=== PATIENT | male | born 1985 | race Caucasian/White ===

== ENCOUNTER 2020-09-08 22:00 | Inpatient (IN) | payer MEDICAID, SELFPAY ==
[2020-09-08 22:07] VITALS: BP 127/87; PULSE 87; RESP 15; TEMP 37.1; O2SAT 100
[2020-09-08 22:10] VITALS: BMI 44.2
[2020-09-08 22:24] LABS: Glucose Point of Care 127 mg/dL (70-110)
[2020-09-09] MEDS: apixaban 5 mg Tablet PO ×3 (00:30→21:20)
--- NOTE | 2020-09-09 03:46 | PC.NURSE ---
DIRECT ADMIT 35/M PT IS A DIRECT ADMISSION FROM [facility] IN [place] , VOLUNTARY FOR [facility]-AH, PT HITS HIMSELF, THE DEMONS IN HIS BODY, FORCE HIM TO HURT HIMSELF AND TELLS HIM TO HURT OTHER PEOPLE. PT REPORTS GOOD INTENTION OF GETTING STABILIZED ON MEDICATION FOR HIS DEPRESSION BUT LACK OF FOLLOW THRU. PT REPORTS HX OF MARIJUANA USE, VARIOUS OPIATE/PAIN MED ABUSE, AND TRYING METH, SHROOMS, AND DRINKING,STATED i QUIT 8 MONTHS AGO TO LIVE FOR GOD. 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 PT ALSO HAS A HX OF DIABETES. PT USES [facility] IN [place], [place] AND SEES A PSYCHIATRIST THERE.
--- NOTE | 2020-09-09 04:28 | PC.NURSE ---
PT HX/ BEHAVIOR EXPERIENCED AH FOR MANY YEARS, THIS IS NOT A NEW ONSET. PT STATES, DEMONS ARE TELLING ME TO HURT MYSELF AND THEN WILL HIT HIMSELF TO MAKE THE THOUGHTS AND THE VOICES STOP. LATELY, THIS IS NOT HELPING HIM TO REFOCUS. PT REPORTS INCREASED EPISODES OF UNPROVOKED RAGE, STATES, THIS HAS TO BE THE DEVIL DOING THIS TO ME. PT HAS BEEN OFF HIS PSYCH MEDS FOR A COUPLE OF MONTHS, STATES, I GET TO WHERE I THINK THAT EVERYTHING IS OK AND I DO NOT NEED THEM ANYMORE AND STOP TAKING THEM.I NEED SOMEONE TO MAKE SURE I DO. PT REPORTS GIVING UP DRUGS AND ALCOHOL TO SERVE GOD, AND BE GOOD. HE SAYS HE IS AND HAS GIVEN UP SMOKING AND DRUGS, HOWEVER, HE STILL HAS URGES.
[2020-09-09 05:53] VITALS: BP 116/76; PULSE 69; RESP 17; TEMP 36.6; O2SAT 98
[2020-09-09 06:48] LABS: Glucose Point of Care 121 mg/dL (70-110)
[2020-09-09 11:37] LABS: Glucose Point of Care 159 mg/dL (70-110)
[2020-09-09] MEDS: hyDROXYzine 25 mg Capsule 50 MG PO ×2 (11:58→18:20)
--- NOTE | 2020-09-09 11:58 | PC.NURSE ---
Addendum entered by Cris Canada LPN 09/09/20 13:46: prn med somewhat effective, per FOURTH OFFICER during 15 minute rounds, pt sitting on his bed rocking, told FOURTH OFFICER he was praying Original Note: PRN VISTARIL 50 MG GIVEN PO PER PT C/O STATED ANXIETY. PT ANXIOUS TO SEE PHYSICIAN. WILL CONT TO MONITOR
[2020-09-09 14:00] VITALS: BP 139/91; PULSE 84; RESP 18; TEMP 37.2; O2SAT 97
--- NOTE | 2020-09-09 15:59 | P.HP_ITS ---
Providers/Chief Complaint Admitting Physician: Dagoberto Foote MD Chief Complaint: Psychosis HPI NPU History of Present Illness Bharat Guerra is a 35 year old male who presented to the outside hospital reporting that he is struggling with the nerves and things of that nature. Hearing voices, hitting himself as he is concerned about possession. He was transferred to [facility] and for the neuropsychiatric unit for definitive treatment of those issues. He reports he had previously been in [facility]. His first hospitalization was in ' and he did have some outpatient follow-up at [facility]. He reports that after the hospitalizations he would get out of generally not take medications. He reports he currently smoke cigarettes every now and then, drinks alcohol not much hasn't smoked marijuana in about a year. Denies current cocaine methamphetamine or opiates but has tried in the past. He never had a rehab stay and has had one DUI. He reports this all started because he was having a really bad day and people's corner said he should go to the hospital. He reports that he is experiencing demons in his body and having significant voices. He reports that he is been on Zyprexa before but he doesn't feel he is tried a lot of the medications that were named. We discussed the risk-benefit and alternatives of a trial of Abilify and he understood and agreed proceed as is documented in this note. Psychiatric history: As above. Substance abuse history: As above. Family history: He endorses mental health issues on both sides of the family and alcohol or other drug issues on dad side of the family he says there have been suicide attempt on his mother side of family. Developmental history: There were no problems with the , or delivery, learned to walk and talk and met developmental milestones on time, and denies need for speech therapy, learning support, emotional support or special education classes. Psychosocial history: He reports his mother and father were together when he was born but split up and about [age] he has an older sister and younger brother. He says his mother has a daughter that is his half sibling but he doesn't know if his dad has any other children. He reports his childhood was not perfect and there was emotional abuse but he denied physical or sexual abuse. He did graduate from high school where he did participate in contact. He endorsed being heterosexual with a long relationship being 1 year. He is never been , he is never had biological children, is never in the and he does have confucianist thinking. His longest job ever held was 2 years. Currently lives in apartment alone. Legal history: Endorses having an overnight stay in [facility]. Medical history: Type 2 diabetes and obesity versus morbid obesity Meds NPU Home Medications Medication Instructions Recorded Confirmed Last Taken Type apixaban [Eliquis] 5 mg PO BID 09/08/20 09/08/20 09/07/20 History insulin glargine [Lantus U-100 30 unit SUBCUT QPM 09/08/20 09/08/20 09/07/20 History Insulin] Allergies Allergy/AdvReac Type Severity Reaction Status Date / Time No Known Allergies Allergy Verified 09/08/20 22:13 PFSH NPU PFSH: Family History (Updated 09/09/20 @ 04:28 by Radha Sharpe RN) Father Heart disease Hx of blood clots Mother Hypertension Mental Status Exam MSE Comments: This is an obese versus morbidly obese white male with hospital scrubs on with limited grooming and eye contact. No abnormal movements except for psychomotor retardation. Cooperative with exam in mild distress. Speech was decreased rate and volume. Mood described as irritable, affect anxious. Thought process organized. Thought content: Patient denied suicidal or homicidal ideation, there was paranoia reported and paranoid, persecutory and hyper confucianist delusions noted, currently denies auditory visual hallucinations but reports is been very overwhelming recently. Attention and concentration were intact and memory appeared reliable but none were formally tested. He is alert and oriented x3. Insight judgment are limited, impulse control is limited. 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 1. Continue current medication. We will start Abilify 10 mg p.o. every morning. 2. Continue every 15 minute checks for safety. 3. Encourage individual, group and milieu therapies. 4. Encourage sober living treatment after discharge at the highest level of care to which he is willing to commit. Involuntary Hold Information 96 Hour Hold: 96 Hour Involuntary Admission: No Attestations NPU Medical Necessity Statement*: Inpatient hospitalization is medically necessary and the clinically appropriate intervention at this time. We will monitor medications and make changes as indicated. Patient will be in the hospital for over two midnights. Likely length of stay 3 to 5 days. Coding Level of Care Code Acute Sap Analyst for Sania Fwd Diagnoses Psychosis F29
[2020-09-09 16:58] LABS: Glucose Point of Care 138 mg/dL (70-110)
--- NOTE | 2020-09-09 18:20 | PC.NURSE ---
PRN VISTARIL 50 MG GIVEN PO PER PT C/O STATED ANXIETY & BAD THOUGHTS
[2020-09-09 20:48] LABS: Glucose Point of Care 160 mg/dL (70-110)
[2020-09-09 21:06] VITALS: BP 144/90; PULSE 105; RESP 21; TEMP 36.9; O2SAT 97
[2020-09-09] MEDS: insulin glargine 100 units/1 mL 30 UNIT SUBCUT (21:24)
[2020-09-10] MEDS: hyDROXYzine 25 mg Capsule 50 MG PO ×3 (00:04→18:04)
--- NOTE | 2020-09-10 00:08 | PC.NURSE ---
pt requested med to help shut my thoughts down . vistaril 50mg po given.
[2020-09-10 06:00] VITALS: BP 125/78; PULSE 68; RESP 17; TEMP 36.7; O2SAT 98
[2020-09-10 07:04] LABS: Glucose Point of Care 99 mg/dL (70-110)
[2020-09-10] MEDS: apixaban 5 mg Tablet PO ×2 (09:14→21:25)
[2020-09-10] MEDS: ARIPiprazole 10 mg Tablet PO (11:21)
[2020-09-10 11:40] LABS: Glucose Point of Care 123 mg/dL (70-110)
[2020-09-10 14:00] VITALS: BP 134/85; PULSE 73; RESP 20; TEMP 37.1; O2SAT 98
--- NOTE | 2020-09-10 15:59 | PM.NPN ---
Subjective NPU Subjective: Interval history: Bharat presents today reporting that he is tolerating the Abilify okay having had one dose thus far. Today he was training for extended period on the telephone on the first try to approach him. He acknowledged awareness of the interaction though he did not acknowledge awareness at the time. He endorses a willingness to focus on waiting for possible improvement through the medication. Mental Status Exam MSE Comments: This is an obese versus morbidly obese white male with hospital scrubs on with limited grooming and eye contact. No abnormal movements except for psychomotor retardation. Cooperative with exam in mild distress. Speech was decreased rate and volume. Mood described as optimistic, affect anxious. Thought process organized. Thought content: Patient denied suicidal or homicidal ideation, there was paranoia reported and paranoid, persecutory and hyper hindu delusions noted, currently denies auditory visual hallucinations but reports is been very overwhelming recently. Attention and concentration were intact and memory appeared reliable but none were formally tested. He is alert and oriented x3. Insight judgment are limited, impulse control is limited. 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 1. Continue current medication. 2. Continue every 15 minute checks for safety. 3. Encourage individual, group and milieu therapies. 4. Encourage sober living treatment after discharge at the highest level of care to which he is willing to commit. Involuntary Hold Information 96 Hour Hold: 96 Hour Involuntary Admission: No Attestations NPU Medical Necessity Statement*: Inpatient hospitalization is medically necessary and the clinically appropriate intervention at this time. We will monitor medications and make changes as indicated. Likely length of stay 2-4 days. Coding Level of Care Code Acute Supervisor Volunteer Services for Sania Logan
[2020-09-10 16:34] LABS: Glucose Point of Care 126 mg/dL (70-110)
[2020-09-10 20:14] VITALS: BP 138/92; PULSE 83; RESP 18; TEMP 36.9; O2SAT 98
[2020-09-10 20:26] LABS: Glucose Point of Care 173 mg/dL (70-110)
[2020-09-10] MEDS: insulin glargine 100 units/1 mL 30 UNIT SUBCUT (21:26)
[2020-09-11] MEDS: OLANZapine 5 mg ODT PO ×2 (04:10→20:29)
--- NOTE | 2020-09-11 04:10 | PC.NURSE ---
BEHAVIOR PT IS AGITATED, CAME TO WINDOW NEEDING A SHOWER, SWEATY, UPSET, SAYS HE IS HEARING VOICES THAT ARE GETTING LOUDER. REQUESTED MEDICATION, MED NURSE NOTIFIED.
[2020-09-11 05:58] VITALS: BP 115/71; PULSE 72; RESP 20; TEMP 36.8; O2SAT 97
[2020-09-11 06:32] LABS: Glucose Point of Care 107 mg/dL (70-110)
[2020-09-11] MEDS: apixaban 5 mg Tablet PO ×2 (08:45→20:29)
[2020-09-11] MEDS: ARIPiprazole 10 mg Tablet PO (08:45)
[2020-09-11] MEDS: hyDROXYzine 25 mg Capsule 50 MG PO ×2 (11:59→20:29)
[2020-09-11 12:03] LABS: Glucose Point of Care 125 mg/dL (70-110)
[2020-09-11 13:50] VITALS: BP 117/76; PULSE 82; RESP 17; TEMP 37; O2SAT 97
[2020-09-11 14:00] VITALS: BP 138/84; PULSE 83; RESP 17; TEMP 37.1; O2SAT 92
[2020-09-11 17:29] LABS: Glucose Point of Care 119 mg/dL (70-110)
[2020-09-11 17:29] LABS: Glucose Point of Care 175 mg/dL (70-110)
--- NOTE | 2020-09-11 17:55 | PM.NPN ---
Subjective NPU Subjective: Interval history: Bharat presents today reporting that things are going about the same. He continues to be religiously preoccupied but continues to endorse optimism that things will be better still endorsing regular auditory hallucinations but seeming less guarded. We discussed the risk benefits and alternatives of increasing his Abilify and he understood and agreed proceed as is documented in this note. Mental Status Exam MSE Comments: This is an obese versus morbidly obese white male with hospital scrubs on with limited grooming and eye contact. No abnormal movements except for psychomotor retardation. Cooperative with exam in mild distress. Speech was more normal rate and volume. Mood described as about the same, affect anxious. Thought process organized. Thought content: Patient denied suicidal or homicidal ideation, there was paranoia reported but he appeared less guarded with paranoid, persecutory and hyper episcopal delusions noted, and he endorses auditory hallucinations. Attention and concentration were intact and memory appeared reliable but none were formally tested. He is alert and oriented x3. Insight judgment are limited, impulse control is limited. 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 1. Continue current medication. Increase Abilify to 20 mg p.o. every morning. 2. Continue every 15 minute checks for safety. 3. Encourage individual, group and milieu therapies. 4. Encourage sober living treatment after discharge at the highest level of care to which he is willing to commit. Involuntary Hold Information 96 Hour Hold: 96 Hour Involuntary Admission: No Attestations NPU Medical Necessity Statement*: Inpatient hospitalization is medically necessary and the clinically appropriate intervention at this time. We will monitor medications and make changes as indicated. Likely length of stay 2-4 days. Coding Level of Care Code Acute Pupil Personnel Services Director for Sania Logan
[2020-09-11 18:23] LABS: Glucose Point of Care 162 mg/dL (70-110)
[2020-09-11] MEDS: trazodone 50 mg Tablet PO (20:29)
[2020-09-11 20:30] LABS: Glucose Point of Care 158 mg/dL (70-110)
[2020-09-11] MEDS: insulin glargine 100 units/1 mL 30 UNIT SUBCUT (20:33)
--- NOTE | 2020-09-11 20:38 | PC.NURSE ---
PRNs Trazodone 50mg PO, given to help pt rest visteril 50mg po, pt is anxious zyprexa zydis 5mg PO - pt is hearing voices, became agitated
[2020-09-11 21:30] VITALS: BP 137/91; PULSE 97; RESP 17; TEMP 36.6; O2SAT 98
[2020-09-12 06:00] VITALS: BP 119/78; PULSE 70; RESP 17; TEMP 36.6; O2SAT 97
[2020-09-12 06:38] LABS: Glucose Point of Care 85 mg/dL (70-110)
[2020-09-12] MEDS: ARIPiprazole 10 mg Tablet 20 MG PO (08:29)
[2020-09-12] MEDS: apixaban 5 mg Tablet PO ×2 (08:29→21:51)
[2020-09-12 11:33] LABS: Glucose Point of Care 124 mg/dL (70-110)
--- NOTE | 2020-09-12 13:04 | P.PN_ITS ---
Subjective NPU Subjective: Interval history: Bharat presents today continuing to struggle with voices. There is a obsessive nature to his thoughts about his thoughts. As he often is obsessing about them throughout the day. He is tolerating his increase in Abilify and is having as needed medication as indicated to look for something to augment the Abilify. He is eating okay and appears to be sleeping a little better. Mental Status Exam MSE Comments: This is an obese versus morbidly obese white male with hospital scrubs on with limited grooming and eye contact. No abnormal movements except f or mild psychomotor retardation. Cooperative with exam in mild distress. Speech was more normal rate and volume. Mood described still hearing voices, affect anxious. Thought process organized. Thought content: Patient denied suicidal or homicidal ideation, there was paranoia reported but he appeared less guarded with paranoid, persecutory and hyper spiritism delusions noted, and he endorses auditory hallucinations. Attention and concentration were intact and memory appeared reliable but none were formally tested. He is alert and oriented x3. Insight judgment are limited, impulse control is limited. 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 1. Continue current medication. We will discuss an SSRI to hopefully combat the obsessive nature of his thinking process. 2. Continue every 15 minute checks for safety. 3. Encourage individual, group and milieu therapies. 4. Encourage sober living treatment after discharge at the highest level of care to which he is willing to commit. Involuntary Hold Information 96 Hour Hold: 96 Hour Involuntary Admission: No Attestations NPU Medical Necessity Statement*: Inpatient hospitalization is medically necessary and the clinically appropriate intervention at this time. We will monitor medications and make changes as indicated. Likely length of stay 2-4 days. Coding Level of Care Code Acute Senior Water/Wastewater Engineer for Sania Logan
[2020-09-12 14:00] VITALS: BP 124/82; PULSE 91; RESP 20; TEMP 36.6; O2SAT 96
[2020-09-12] MEDS: hyDROXYzine 25 mg Capsule 50 MG PO ×2 (14:47→21:51)
[2020-09-12] MEDS: OLANZapine 5 mg ODT PO (16:24)
--- NOTE | 2020-09-12 16:25 | PC.NURSE ---
prn [id number] Administered Zyprexa Zydis 5mg for anxiety. will continue to monitor.
--- NOTE | 2020-09-12 16:27 | PC.NURSE ---
Addendum entered by Kathryn Soto LPN 09/12/20 16:37: [id number] pt is on phone at this time asking for prayers. will continue to monitor pt. Original Note: prn [id number] Administered vistaril 50mg for anxiety and hearing voices, will continue to monitor.
[2020-09-12 16:42] LABS: Glucose Point of Care 121 mg/dL (70-110)
[2020-09-12] MEDS: haloperidol 5 mg Tablet PO (18:39)
--- NOTE | 2020-09-12 18:58 | PC.NURSE ---
yolanda 1838 administered Haldol 5mg for increasing auditory hallucinations, vistaril was administered earlier as well as zyprexa eddie, pt stated that the demons are trying to take over and they are over taking his thoughts with a force. Will continue to monitor pt, pt is near the nursing desk.
[2020-09-12 19:52] LABS: Glucose Point of Care 175 mg/dL (70-110)
[2020-09-12 20:08] VITALS: BP 149/90; PULSE 95; RESP 18; TEMP 36.8; O2SAT 96
[2020-09-12] MEDS: insulin glargine 100 units/1 mL 30 UNIT SUBCUT (21:52)
--- NOTE | 2020-09-12 21:55 | PC.NURSE ---
Patient requesting Vistaril 50 mg PO for anxiety. Given
[2020-09-13 06:00] VITALS: BP 130/80; PULSE 63; RESP 17; TEMP 36.6; O2SAT 98
[2020-09-13 06:33] LABS: Glucose Point of Care 96 mg/dL (70-110)
[2020-09-13] MEDS: apixaban 5 mg Tablet PO ×2 (09:26→20:51)
[2020-09-13] MEDS: ARIPiprazole 10 mg Tablet 20 MG PO (09:26)
[2020-09-13 12:27] LABS: Glucose Point of Care 161 mg/dL (70-110)
[2020-09-13 14:00] VITALS: BP 130/80; PULSE 63; RESP 17; TEMP 36.6; O2SAT 98
[2020-09-13] MEDS: OLANZapine 5 mg ODT PO (14:56)
[2020-09-13 15:19] VITALS: BP 112/66; PULSE 82; RESP 18; TEMP 36.9; O2SAT 99
--- NOTE | 2020-09-13 16:59 | P.PN_ITS ---
Subjective NPU Subjective: Interval history: Bharat presents today reporting that he is doing fine with the Abilify but continues to report that the voices are present and overwhelming. We discussed the estimated voices and discussed the risks, benefits and alternatives of a trial of Prozac to assist with this obsessiveness and he understood and agreed proceed as is documented in this note. He reports he is eating okay and he is sleeping well. Mental Status Exam MSE Comments: This is an obese versus morbidly obese white male with hospital scrubs on with limited grooming and eye contact. No abnormal movements. Cooperative with exam in mild distress. Speech was more normal rate and volume. Mood described still hearing voices, affect anxious. Thought process organized. Thought content: Patient denied suicidal or homicidal ideation, there was paranoia reported but he appeared less guarded with paranoid, persecutory and hyper congregational delusions noted, and he endorses auditory troy llucinations. Attention and concentration were intact and memory appeared reliable but none were formally tested. He is alert and oriented x3. Insight judgment are limited, impulse control is limited. 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 1. Continue current medication. Start Prozac 20 mg p.o. every morning. 2. Continue every 15 minute checks for safety. 3. Encourage individual, group and milieu therapies. 4. Encourage sober living treatment after discharge at the highest level of care to which he is willing to commit. Involuntary Hold Information 96 Hour Hold: 96 Hour Involuntary Admission: No Attestations NPU Medical Necessity Statement*: Inpatient hospitalization is medically necessary and the clinically appropriate intervention at this time. We will monitor medications and make changes as indicated. Likely length of stay 2-4 days. Coding Level of Care Code Acute Laborer Concrete Plant for Sania Logan
[2020-09-13] MEDS: fluoxetine 20 mg Capsule PO (17:28)
[2020-09-13 17:53] LABS: Glucose Point of Care 146 mg/dL (70-110)
[2020-09-13 20:45] VITALS: BP 130/85; PULSE 82; RESP 18; TEMP 37.2; O2SAT 96
[2020-09-13] MEDS: insulin glargine 100 units/1 mL 30 UNIT SUBCUT (20:51)
[2020-09-13] MEDS: hyDROXYzine 25 mg Capsule 50 MG PO (20:51)
[2020-09-14 03:52] LABS: Glucose Point of Care 130 mg/dL (70-110)
--- NOTE | 2020-09-14 04:23 | PC.NURSE ---
Patient said, I feel like there are demons in my body. Can I get something for these negative thoughts. Vistaril 50 mg po given. Suggested patient return in 1/2 to 1 hour for additional medication if no relief of the symptoms.
[2020-09-14] MEDS: hyDROXYzine 25 mg Capsule 50 MG PO ×2 (04:24→20:46)
[2020-09-14 06:00] VITALS: BP 131/48; PULSE 64; RESP 18; TEMP 36.6; O2SAT 98
[2020-09-14 06:19] LABS: Glucose Point of Care 92 mg/dL (70-110)
[2020-09-14] MEDS: apixaban 5 mg Tablet PO ×2 (08:03→20:46)
[2020-09-14] MEDS: fluoxetine 20 mg Capsule PO (08:03)
[2020-09-14] MEDS: ARIPiprazole 10 mg Tablet 20 MG PO (08:03)
[2020-09-14 11:18] LABS: Glucose Point of Care 85 mg/dL (70-110)
[2020-09-14 14:00] VITALS: BP 139/84; PULSE 90; RESP 17; TEMP 36.8; O2SAT 95
[2020-09-14] MEDS: OLANZapine 5 mg ODT PO (15:51)
--- NOTE | 2020-09-14 15:52 | PC.NURSE ---
Patient request for zyprexa due increased agitation.
[2020-09-14 16:21] LABS: Glucose Point of Care 147 mg/dL (70-110)
--- NOTE | 2020-09-14 20:02 | PM.NPN ---
Subjective NPU Subjective: Interval history: Bharat present today reporting that things finally. He reports the voices are going down that he is feeling a little clear. He denies any major concerns and we discussed continue with the medication at the current dose. He reports he is eating okay and sleeping a little better. Mental Status Exam MSE Comments: This is an obese versus morbidly obese white male with hospital scrubs on with limited grooming and eye contact. No abnormal movements. Cooperative with exam in no acute distress. Speech was more normal rate and volume. Mood described as a little better, affect less anxious. Thought process organized. Thought content: Patient denied suicidal or homicidal ideation, there were delusions reported and he appeared less guarded with paranoid,, and he endorses deminishing auditory hallucinations. Attention and concentration were intact and memory appeared reliable but none were formally tested. He is alert and oriented x3. Insight judgment are limited, but improving, impulse control is limited. 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 1. Continue current medication. 2. Continue every 15 minute checks for safety. 3. Encourage individual, group and milieu therapies. 4. Encourage sober living treatment after discharge at the highest level of care to which he is willing to commit. Involuntary Hold Information 96 Hour Hold: 96 Hour Involuntary Admission: No Attestations NPU Medical Necessity Statement*: Inpatient hospitalization is medically necessary and the clinically appropriate intervention at this time. We will monitor medications and make changes as indicated. Likely length of stay 2-4 days. Coding Level of Care Code Acute Tree And Shrub Technician for Sania Logan
[2020-09-14 20:54] LABS: Glucose Point of Care 151 mg/dL (70-110)
[2020-09-14] MEDS: insulin glargine 100 units/1 mL 30 UNIT SUBCUT (20:59)
[2020-09-14 21:45] VITALS: BP 122/82; PULSE 87; RESP 20; TEMP 36.7; O2SAT 95
[2020-09-15 06:00] VITALS: BP 96/58; PULSE 47; RESP 16; TEMP 37.1; O2SAT 97
[2020-09-15] MEDS: ARIPiprazole 10 mg Tablet 20 MG PO (08:12)
[2020-09-15] MEDS: fluoxetine 20 mg Capsule PO (08:13)
[2020-09-15] MEDS: apixaban 5 mg Tablet PO ×2 (08:13→20:02)
[2020-09-15 11:19] LABS: Glucose Point of Care 119 mg/dL (70-110)
[2020-09-15] MEDS: hyDROXYzine 25 mg Capsule 50 MG PO ×2 (12:25→20:02)
--- NOTE | 2020-09-15 12:26 | PC.NURSE ---
Addendum entered by Cris Canada LPN 09/15/20 14:25: prn med effective no further c/o anxiety Original Note: PRN VISTARIL 50 MG GIVEN PO PER PT C/O STATED ANXIETY. NO OUTWARD S/S OF ANXIETY NOTED, PT IS PLEASANT WITH STAFF INTERACTION. WILL CONT TO MONITOR
[2020-09-15 14:00] VITALS: BP 128/84; PULSE 90; RESP 18; TEMP 36.6; O2SAT 95
[2020-09-15] MEDS: OLANZapine 5 mg ODT PO (14:51)
--- NOTE | 2020-09-15 14:51 | PC.NURSE ---
Patient came to the nurses station requesting Zyprexa for anxiety. Medication administered.
--- NOTE | 2020-09-15 15:08 | P.PN_ITS ---
Subjective NPU Subjective: Interval history: Bharat presents today reporting that he doing a little less well compared to yesterday with a little more of his setting. He talked to someone and they mentioned ECT he was wondering about that and significant questions along that line. We discussed the fact that it takes time for the medication to manifest its full effect and need to be patient. Which is very difficult for him to do given the extensive nature of his thinking process. Discussed the possibility of increasing the Prozac sooner than we would normally given his circumstances. We agreed we would not consider that until tomorrow. Mental Status Exam MSE Comments: This is an obese versus morbidly obese white male with hospital scrubs on with limited grooming and eye contact. No abnormal movements. Cooperative with exam in no acute distress. Speech was more normal rate and volume. Mood described as not as good as yesterday, affect anxious. Thought process organized. Thought content: Patient denied suicidal or homicidal ideation, there were delusions reported and he appeared less guarded with paranoid, and he endorses auditory hallucinations. Attention and concentration were intact and memory appeared reliable but none were formally tested. He is alert and oriented x3. Insight judgment are limited, but improving, impulse control is limited. Vitals/I&O/Wt Last Vital Signs Temp 98.4 F 09/15/20 22:00 Pulse 85 09/15/20 22:00 Resp 16 09/15/20 22:00 BP 126/87 09/15/20 22:00 Pulse Ox 96 09/15/20 22:00 A&P Assessment and plan (1) OCD (obsessive compulsive disorder): Status: Acute (2) Psychosis: Status: Acute Additional A&P Information This is a 35-year-old white male with a long history of mental health hospitalizations with limited follow-up who presents off of medication with religiously driven psychosis with obsessive thinking who presents open to a trial of medications. 1. Continue current medication. We will consider increasing Prozac to 40 mg tomorrow. 2. Continue every 15 minute checks for safety. 3. Encourage individual, group and milieu therapies. 4. Encourage sober living treatment after discharge at the highest level of care to which he is willing to commit. Involuntary Hold Information 96 Hour Hold: 96 Hour Involuntary Admission: No Attestations NPU Medical Necessity Statement*: Inpatient hospitalization is medically necessary and the clinically appropriate intervention at this time. We will monitor medications and make changes as indicated. Likely length of stay 2-4 days. Coding Level of Care Code Acute [employer] Airspace Control Officer for g [facility] Diagnoses OCD (obsessive compulsive disorder) F42.9 Psychosis F29
[2020-09-15 16:32] LABS: Glucose Point of Care 114 mg/dL (70-110)
[2020-09-15] MEDS: haloperidol 5 mg Tablet PO (16:48)
--- NOTE | 2020-09-15 16:49 | PC.NURSE ---
Patient came up to the nurses station requesting Haldol for anxiety as he felt the Zyprexa was not effective.
[2020-09-15] MEDS: insulin glargine 100 units/1 mL 30 UNIT SUBCUT (20:03)
[2020-09-15 20:32] LABS: Glucose Point of Care 168 mg/dL (70-110)
[2020-09-15 22:00] VITALS: BP 126/87; PULSE 85; RESP 16; TEMP 36.9; O2SAT 96
--- NOTE | 2020-09-15 22:47 | PC.NURSE ---
At 2001, pt requested vistaril for the voices . Vistaril 50mg po given at that time. Pt now resting quietly with both eyes closed.
[2020-09-16 06:00] VITALS: BP 111/68; PULSE 83; RESP 16; TEMP 36.2; O2SAT 97
[2020-09-16 06:27] LABS: Glucose Point of Care 109 mg/dL (70-110)
[2020-09-16] MEDS: apixaban 5 mg Tablet PO ×2 (07:39→21:10)
[2020-09-16] MEDS: ARIPiprazole 10 mg Tablet 20 MG PO (07:40)
[2020-09-16] MEDS: fluoxetine 20 mg Capsule PO ×2 (07:40→11:43)
[2020-09-16 11:38] LABS: Glucose Point of Care 95 mg/dL (70-110)
[2020-09-16 14:00] VITALS: BP 128/84; PULSE 85; RESP 18; TEMP 36.2; O2SAT 95
[2020-09-16] MEDS: hyDROXYzine 25 mg Capsule 50 MG PO ×2 (14:34→21:10)
--- NOTE | 2020-09-16 15:54 | P.PN_ITS ---
Subjective NPU Subjective: Interval history: Patient presents today reporting that things are going okay. He reports he is trying to have positive thoughts and cannot assess. We reviewed the plan to increase the Prozac and he understood and agreed proceed as is documented in his note. We continue to focus on the process and him not getting obsessive about each detail but it is difficult he reports. He is eating fine and sleeping okay. Mental Status Exam MSE Comments: This is an obese versus morbidly obese white male with hospital scrubs on with limited grooming and eye contact. No abnormal movements. Cooperative with exam in no acute distress. Speech was more normal rate and volume. Mood described as a little better, affect anxious. Thought process organized. Thought content: Patient denied suicidal or homicidal ideation, there were delusions reported and he appeared less guarded with paranoid, and he endorses auditory hallucinations, with mild improvement. Attention and damaris ntration were intact and memory appeared reliable but none were formally tested. He is alert and oriented x3. Insight judgment are limited, but improving, impulse control is limited. Vitals/I&O/Wt Last Vital Signs Temp 98.7 F 09/16/20 20:33 Pulse 88 09/16/20 20:33 Resp 17 09/16/20 20:33 BP 133/86 09/16/20 20:33 Pulse Ox 100 09/16/20 20:33 A&P Additional A&P Information (1) OCD (obsessive compulsive disorder): (2) Psychosis: Additional A&P Information This is a 35-year-old white male with a long history of mental health hospitalizations with limited follow-up who presents off of medication with religiously driven psychosis with obsessive thinking who presents open to a trial of medications. 1. Continue current medication. Increase Prozac to 40. 2. Continue every 15 minute checks for safety. 3. Encourage individual, group and milieu therapies. 4. Encourage sober living treatment after discharge at the highest level of care to which he is willing to commit. Involuntary Hold Information 96 Hour Hold: 96 Hour Involuntary Admission: No Attestations NPU Medical Necessity Statement*: Inpatient hospitalization is medically necessary and the clinically appropriate intervention at this time. We will monitor medications and make changes as indicated. Likely length of stay 1-3 days. Coding Level of Care Code Acute Threshing Department Supervisor for [facility]
[2020-09-16 16:29] LABS: Glucose Point of Care 134 mg/dL (70-110)
[2020-09-16 20:10] LABS: Glucose Point of Care 151 mg/dL (70-110)
[2020-09-16 20:33] VITALS: BP 133/86; PULSE 88; RESP 17; TEMP 37.1; O2SAT 100
[2020-09-16] MEDS: insulin glargine 100 units/1 mL 30 UNIT SUBCUT (21:09)
[2020-09-17 06:00] VITALS: BP 119/18; PULSE 71; RESP 15; TEMP 37.1; O2SAT 96
[2020-09-17 06:37] LABS: Glucose Point of Care 113 mg/dL (70-110)
[2020-09-17] MEDS: apixaban 5 mg Tablet PO ×2 (09:07→21:01)
[2020-09-17] MEDS: ARIPiprazole 10 mg Tablet 20 MG PO (09:07)
[2020-09-17] MEDS: fluoxetine 20 mg Capsule 40 MG PO (09:08)
[2020-09-17 11:31] LABS: Glucose Point of Care 149 mg/dL (70-110)
[2020-09-17] MEDS: OLANZapine 5 mg ODT PO (13:12)
--- NOTE | 2020-09-17 13:13 | PC.NURSE ---
prn 1314 administered Zyprexa Zydis 5mg for pt c/o auditory hallucinations, will continue to monitor pt.
[2020-09-17 14:00] VITALS: BP 113/79; PULSE 100; RESP 18; TEMP 36.2; O2SAT 95
[2020-09-17] MEDS: hyDROXYzine 25 mg Capsule 50 MG PO (15:09)
--- NOTE | 2020-09-17 15:33 | PM.NPN ---
Subjective NPU Subjective: Interval history: Bharat continues to struggle with his obsessive thinking. He denies any issues with the medication changes. He continues to endorse intrusive thinking. We discussed the fact that Dr. Davila would be coming on service they will continue to work on these issues trying to move towards a safe discharge. Reports he is eating okay and sleeping fine. Mental Status Exam MSE Comments: This is an obese versus morbidly obese white male with hospital scrubs on with limited grooming and eye contact. No abnormal movements. Cooperative with exam in no acute distress. Speech was more normal rate and volume. Mood described as still having bad thoughts/negative thoughts, affect anxious. Thought process organized. Thought content: Patient denied suicidal or homicidal ideation, there were delusions reported and he appeared less guarded with paranoid, and he endorses auditory hallucinations. Attention and concentration were intact and memory appeared reliable but none were formally tested. He is alert and oriented x3. Insight judgment are limited, but improving, impulse control is limited. Vitals/I&O/Wt Last Vital Signs Temp 98.7 F 09/17/20 20:57 Pulse 97 09/17/20 20:57 Resp 17 09/17/20 20:57 BP 151/96 09/17/20 20:57 Pulse Ox 95 09/17/20 20:57 A&P Additional A&P Information (1) OCD (obsessive compulsive disorder): (2) Psychosis: Additional A&P Information This is a 35-year-old white male with a long history of mental health hospitalizations with limited follow-up who presents off of medication with religiously driven psychosis with obsessive thinking who presents open to a trial of medications. 1. Continue current medication. 2. Continue every 15 minute checks for safety. 3. Encourage individual, group and milieu therapies. 4. Encourage sober living treatment after discharge at the highest level of care to which he is willing to commit. Involuntary Hold Information 96 Hour Hold: 96 Hour Involuntary Admission: No Attestations NPU Medical Necessity Statement*: Inpatient hospitalization is medically necessary and the clinically appropriate intervention at this time. We will monitor medications and make changes as indicated. Likely length of stay 1-3 days. Coding Level of Care Code Acute Business Information Analyst for [facility]
[2020-09-17 16:37] LABS: Glucose Point of Care 132 mg/dL (70-110)
[2020-09-17] MEDS: haloperidol 5 mg Tablet PO (18:51)
--- NOTE | 2020-09-17 18:55 | PC.NURSE ---
JAIRO 185 administered Haldol 5mg for the demon voices being so strong in his head, have tried zydis and vistaril before this. will continue to monitor pt for worsening symptoms.
[2020-09-17 20:55] LABS: Glucose Point of Care 184 mg/dL (70-110)
[2020-09-17 20:57] VITALS: BP 151/96; PULSE 97; RESP 17; TEMP 37.1; O2SAT 95
[2020-09-17] MEDS: insulin glargine 100 units/1 mL 30 UNIT SUBCUT (21:03)
[2020-09-18] MEDS: OLANZapine 5 mg ODT PO ×2 (04:59→16:28)
--- NOTE | 2020-09-18 05:42 | PC.NURSE ---
At 0500 the patient requested medication to treat his negative thoughts. Zyprexa 5 mg po given.
[2020-09-18 05:56] VITALS: BP 122/81; PULSE 79; RESP 16; TEMP 37.1; O2SAT 97
[2020-09-18 07:01] LABS: Glucose Point of Care 112 mg/dL (70-110)
[2020-09-18] MEDS: ARIPiprazole 10 mg Tablet 20 MG PO (09:25)
[2020-09-18] MEDS: apixaban 5 mg Tablet PO ×2 (09:25→20:35)
[2020-09-18] MEDS: fluoxetine 20 mg Capsule 40 MG PO (09:25)
[2020-09-18 11:22] LABS: Glucose Point of Care 134 mg/dL (70-110)
[2020-09-18 14:00] VITALS: BP 130/85; PULSE 89; RESP 18; TEMP 36.1; O2SAT 97
--- NOTE | 2020-09-18 14:01 | PM.NPN ---
Subjective NPU Subjective: Interval history: Patient states that he continues to have thoughts that he may have demons inside of him. Continues to report having intrusive thoughts about various things to include thinking that something is inside of him that is causing problems. When asked if he had had suicidal thoughts since last evaluation, patient states no, I would never hurt myself but now I will have thoughts about that since you have asked me Reports being compliant with his medication and denies any medication side effects Per staff report, no interval behavioral disturbances Mental Status Exam MSE Comments: Disheveled, poorly groomed, unkempt, sitting up on his bed, calm, polite, cooperative, fair eye contact Psychomotor activity is neither increased nor decreased, no agitation I am fine, constricted affect, not labile Alert and oriented to person, place, time, situation Memory and concentration are fair to intact per interview Thought process, linear, no flight of ideas, no looseness of associations Thought content, delusions, does not appear to be attending to any internal stimuli, no suicidal or homicidal ideation Insight and judgment appear to be fair Vitals/I&O/Wt Last Vital Signs Temp 98.7 F 09/18/20 05:56 Pulse 79 09/18/20 05:56 Resp 16 09/18/20 05:56 BP 122/81 09/18/20 05:56 Pulse Ox 97 09/18/20 05:56 A&P Assessment and plan (1) Psychosis: Status: Acute Qualifiers: Psychosis type: unspecified psychosis type Qualified Code(s): F29 - Unspecified psychosis not due to a substance or known physiological condition (2) OCD (obsessive compulsive disorder): Status: Acute Qualifiers: Obsessive-compulsive disorder type: unspecified Qualified Code(s): F42.9 - Obsessive-compulsive disorder, unspecified Additional A&P Information Continues to have up sessions as well as delusional thoughts INCREASE to fluoxetine 60 mg daily targeting obsessions, mood CONTINUE aripiprazole 20 mg daily targeting psychotic symptoms Involuntary Hold Information 96 Hour Hold: 96 Hour Involuntary Admission: No Attestations NPU Medical Necessity Statement*: Continues to require psychiatric hospitalization for medication stabilization, coordination for safe discharge Coding Level of Care Code Acute Sourcing Consultant for [facility] Diagnoses Psychosis F29 Psychosis type: unspecified psychosis type OCD (obsessive compulsive disorder) F42.9 Obsessive-compulsive disorder type: unspecified
[2020-09-18 16:46] LABS: Glucose Point of Care 144 mg/dL (70-110)
[2020-09-18 20:15] LABS: Glucose Point of Care 142 mg/dL (70-110)
[2020-09-18 20:44] VITALS: BP 126/84; PULSE 79; RESP 15; TEMP 36.6; O2SAT 97
[2020-09-18] MEDS: insulin glargine 100 units/1 mL 30 UNIT SUBCUT (20:49)
--- NOTE | 2020-09-19 01:04 | PC.NURSE ---
PM assessment PT DENIES PAIN, DENIES SI/HI, DENIES VH, ENDORSES AH- ANGRY VOICES THAT KEEP COMING BACK, PT REQUESTED VISTERIL WITH HIS NIGHT MEDICATIONS, MED NURSE WAS NOTIFIED OF PT REQUEST. PT INTERACTS WITH OTHERS WELL, HE HAS BEEN LESS OBSESSED WITH HOLINESS, AND ON THE PHONE LESS TONIGHT. HE IS SMILING, ANSWERS QUESTIONS APPROPRIATELY, AND NEEDS LESS INTERVENTION
[2020-09-19 05:59] VITALS: BP 117/78; PULSE 76; RESP 16; TEMP 36.6; O2SAT 98
[2020-09-19 06:49] LABS: Glucose Point of Care 102 mg/dL (70-110)
[2020-09-19] MEDS: apixaban 5 mg Tablet PO ×2 (10:02→20:33)
[2020-09-19] MEDS: ARIPiprazole 10 mg Tablet 20 MG PO (10:02)
[2020-09-19] MEDS: fluoxetine 20 mg Capsule 60 MG PO (10:03)
[2020-09-19 11:00] LABS: Glucose Point of Care 172 mg/dL (70-110)
--- NOTE | 2020-09-19 12:57 | P.PN_ITS ---
Subjective NPU Subjective: Interval history: Continues to report psychotic symptoms, states that he hears voices saying that life is leaving him Continues to report intrusive thoughts Reports some anxiety symptoms, denies any interval panic symptoms Denies any suicidal ideation or thoughts about self-harm Reports being compliant with his medication, denies any medication side effects Per staff report, no interval behavioral disturbances Mental Status Exam MSE Comments: Bandar in the unit hallway, disheveled, poorly groomed, unkempt, calm, polite, cooperative, good eye contact Psychomotor activity is neither increased nor decreased, no agitation I am still hearing voices, constricted affect, not labile Alert and oriented to person, place, time, situation Memory and concentration are fair to intact per interview Thought process, linear, no flight of ideas, no looseness of associations Thought content, reports delusions, does not appear to be attending to any internal stimuli, no suicidal or homicidal ideation Insight and judgment appear to be fair Vitals/I&O/Wt Last Vital Signs Temp 97.8 F 09/19/20 05:59 Pulse 76 09/19/20 05:59 Resp 16 09/19/20 05:59 BP 117/78 09/19/20 05:59 Pulse Ox 98 09/19/20 05:59 A&P Assessment and plan (1) Psychosis: Status: Acute Qualifiers: Psychosis type: unspecified psychosis type Qualified Code(s): F29 - Unspecified psychosis not due to a substance or known physiological condition (2) OCD (obsessive compulsive disorder): Status: Acute Qualifiers: Obsessive-compulsive disorder type: unspecified Qualified Code(s): F42.9 - Obsessive-compulsive disorder, unspecified Additional A&P Information Continues to report psychotic symptoms which he states did not appear to be attenuated by his ongoing use of antipsychotic DISCONTINUE Abilify START olanzapine 10 mg twice daily targeting psychotic symptoms Involuntary Hold Information 96 Hour Hold: 96 Hour Involuntary Admission: No Attestations NPU Medical Necessity Statement*: Psychiatric hospitalization continues to be necessary for medication stabilization Coding Level of Care Code Acute Solder Making Supervisor for [facility]ia [facility] Diagnoses Psychosis F29 Psychosis type: unspecified psychosis type OCD (obsessive compulsive disorder) F42.9 Obsessive-compulsive disorder type: unspecified
[2020-09-19] MEDS: OLANZapine 10 mg TABLET PO ×2 (13:38→18:53)
[2020-09-19 14:00] VITALS: BP 80/56; PULSE 96; RESP 18; TEMP 36.4; O2SAT 94
[2020-09-19 16:31] LABS: Glucose Point of Care 116 mg/dL (70-110)
[2020-09-19 19:53] LABS: Glucose Point of Care 162 mg/dL (70-110)
[2020-09-19 19:59] VITALS: BP 130/87; PULSE 87; RESP 18; TEMP 36.5; O2SAT 96
[2020-09-19] MEDS: hyDROXYzine 25 mg Capsule 50 MG PO (20:33)
[2020-09-19] MEDS: insulin glargine 100 units/1 mL 30 UNIT SUBCUT (20:36)
[2020-09-20 06:00] VITALS: BP 119/81; PULSE 63; RESP 17; TEMP 36.7; O2SAT 97
[2020-09-20 07:09] LABS: Glucose Point of Care 115 mg/dL (70-110)
[2020-09-20] MEDS: fluoxetine 20 mg Capsule 60 MG PO (08:54)
[2020-09-20] MEDS: apixaban 5 mg Tablet PO ×2 (08:54→20:44)
[2020-09-20] MEDS: OLANZapine 10 mg TABLET PO ×2 (08:55→20:44)
[2020-09-20 11:10] LABS: Glucose Point of Care 97 mg/dL (70-110)
--- NOTE | 2020-09-20 12:01 | P.PN_ITS ---
Subjective NPU Subjective: Interval history: Patient immediately wants to tell interviewer that he continues to hear voices despite medication change Patient has been observed up and around on the unit acting appropriately and interacting appropriately with staff Denies any interval mood symptoms although he says he continues to have intrusive thoughts Reports being compliant with the medication and denies any medication side effects Reports having a good appetite and reports improved sleep Mental Status Exam MSE Comments: Standing near the nurses station, fairly well-groomed, polite, interactive, good eye contact Psychomotor activity is neither increased nor decreased, no agitation I am still hearing voices, constricted affect, not labile Alert and oriented to person, place, time, situation Memory and concentration are fair to intact per interview Thought process, linear, no flight of ideas, no looseness of associations Thought content, reports delusions, does not appear to be attending to any internal stimuli, no suicidal or homicidal ideation Insight and judgment appear to be fair Vitals/I&O/Wt Last Vital Signs Temp 98.0 F 09/20/20 06:00 Pulse 63 09/20/20 06:00 Resp 17 09/20/20 06:00 BP 119/81 09/20/20 06:00 Pulse Ox 97 09/20/20 06:00 A&P Assessment and plan (1) Psychosis: Status: Acute Qualifiers: Psychosis type: unspecified psychosis type Qualified Code(s): F29 - Unspecified psychosis not due to a substance or known physiological condition (2) OCD (obsessive compulsive disorder): Status: Acute Qualifiers: Obsessive-compulsive disorder type: unspecified Qualified Code(s): F42.9 - Obsessive-compulsive disorder, unspecified Additional A&P Information Unclear if there may not be secondary gain related to patient's persistent son reporting ongoing hallucinations despite acting appropriately in a calm, organized manner. Reports improving mood but continues to report some intrusive thoughts. Tolerating medication well with no reported side effects. CONTINUE current medication, continue to monitor Involuntary Hold Information 96 Hour Hold: 96 Hour Involuntary Admission: No Attestations NPU Medical Necessity Statement*: Continues require psychiatric hospitalization for medication stabilization Coding Level of Care Code Acute Windows Support Engineer for Sania Logan Diagnoses Psychosis F29 Psychosis type: unspecified psychosis type OCD (obsessive compulsive disorder) F42.9 Obsessive-compulsive disorder type: unspecified
[2020-09-20 13:49] VITALS: BP 124/73; PULSE 70; RESP 14; TEMP 36.8; O2SAT 96
[2020-09-20 16:27] LABS: Glucose Point of Care 106 mg/dL (70-110)
[2020-09-20] MEDS: hyDROXYzine 25 mg Capsule 50 MG PO (16:41)
--- NOTE | 2020-09-20 16:47 | PC.NURSE ---
Addendum entered by Spencer Johnson RN 09/20/20 18:19: PRN MED PT STATED VISTARIL MADE HIM FEEL BETTER, WILL CONTINUE TO MONITOR. Original Note: PRN MED PT GIVEN 50 MG VISTARIL FOR STATED ANXIETY, O S/S OF ANXIETY, WILL CONTINUE TO MONITOR.
[2020-09-20 20:20] LABS: Glucose Point of Care 126 mg/dL (70-110)
[2020-09-20] MEDS: insulin glargine 100 units/1 mL 30 UNIT SUBCUT (20:45)
[2020-09-20 22:00] VITALS: BP 136/79; PULSE 76; RESP 18; TEMP 37; O2SAT 96
[2020-09-21 06:00] VITALS: BP 120/80; PULSE 56; RESP 18; TEMP 36.5; O2SAT 98; BMI 44.2
[2020-09-21] MEDS: apixaban 5 mg Tablet PO ×2 (08:09→20:36)
[2020-09-21] MEDS: fluoxetine 20 mg Capsule 60 MG PO (08:09)
[2020-09-21] MEDS: OLANZapine 10 mg TABLET PO (08:10)
[2020-09-21 11:35] LABS: Glucose Point of Care 114 mg/dL (70-110)
--- NOTE | 2020-09-21 12:24 | P.PN_ITS ---
Subjective NPU Subjective: Interval history: Continues to report ongoing auditory hallucinations which she reports as a 10/10 Denies any interval mood symptoms, denies any suicidal ideation Continues to report intrusive thoughts Per staff, continues to walk on the unit, not in distress, appropriate behavior, eating meals, no behavioral disturbances Mental Status Exam MSE Comments: Sitting on his bed, calm, cooperative, fairly well-groomed, good eye contact Psychomotor activity is neither increased nor decreased, no agitation I am still hearing voices, constricted affect, not labile Alert and oriented to person, place, time, situation Memory and concentration are fair to intact per interview Thought process, linear, no flight of ideas, no looseness of associations Thought content, reports delusions, does not appear to be attending to any internal stimuli, no suicidal or homicidal ideation Insight and judgment appear to be fair Vitals/I&O/Wt Last Vital Signs Temp 97.7 F 09/21/20 06:00 Pulse 56 L 09/21/20 06:00 Resp 18 09/21/20 06:00 BP 120/80 09/21/20 06:00 Pulse Ox 98 09/21/20 06:00 Weight last 48 hrs Weight 113.398 kg A&P Assessment and plan (1) Psychosis: Status: Acute Qualifiers: Psychosis type: unspecified psychosis type Qualified Code(s): F29 - Unspecified psychosis not due to a substance or known physiological condition (2) OCD (obsessive compulsive disorder): Status: Acute Qualifiers: Obsessive-compulsive disorder type: unspecified Qualified Code(s): F42.9 - Obsessive-compulsive disorder, unspecified Additional A&P Information Patient oddly reporting no improvement with increasing amounts of antipsychotic INCREASE to olanzapine 10 mg daily, olanzapine 20 mg at bedtime Involuntary Hold Information 96 Hour Hold: 96 Hour Involuntary Admission: No Attestations NPU Medical Necessity Statement*: Continues to require psychiatric hospitalization for medication stabilization Coding Level of Care Code Acute Chalk Molding Machine Operator for [facility] Diagnoses Psychosis F29 Psychosis type: unspecified psychosis type OCD (obsessive compulsive disorder) F42.9 Obsessive-compulsive disorder type: unspecified
[2020-09-21 14:00] VITALS: BP 136/85; PULSE 87; RESP 20; TEMP 36.6; O2SAT 96
[2020-09-21] MEDS: hyDROXYzine 25 mg Capsule 50 MG PO (16:11)
[2020-09-21 16:28] LABS: Glucose Point of Care 132 mg/dL (70-110)
[2020-09-21 19:54] LABS: Glucose Point of Care 175 mg/dL (70-110)
[2020-09-21 20:23] VITALS: BP 128/84; PULSE 92; RESP 20; TEMP 36.8; O2SAT 95
[2020-09-21] MEDS: OLANZapine 10 mg TABLET 20 MG PO (20:36)
[2020-09-21] MEDS: insulin glargine 100 units/1 mL 30 UNIT SUBCUT (20:36)
[2020-09-21] MEDS: acetaminophen 325 mg Tablet 650 MG PO (20:36)
[2020-09-22 06:00] VITALS: BP 118/75; PULSE 62; RESP 17; TEMP 36.8; O2SAT 97
[2020-09-22 06:06] LABS: Glucose Point of Care 101 mg/dL (70-110)
[2020-09-22] MEDS: apixaban 5 mg Tablet PO ×2 (07:53→20:44)
[2020-09-22] MEDS: fluoxetine 20 mg Capsule 60 MG PO (07:53)
[2020-09-22] MEDS: OLANZapine 10 mg TABLET PO (07:53)
--- NOTE | 2020-09-22 07:59 | PC.NURSE ---
AM note Patient resting during assessment this morning, stated that he has negative thoughts, and that he knows he does not want to harm himself. Patient has been up walking the hallways since he woke up to in hopes to decrease the voices. Patient has also used the phone multiple times this morning for prayer with his insulation manager. Patient in pleasant mood.
--- NOTE | 2020-09-22 10:07 | PM.NPN ---
Subjective NPU Subjective: Interval history: Patient continues to interact on the unit, sitting in the day room watching TV Continues to report auditory hallucinations but reports significantly diminished Reports being compliant with his medication and denies any medication side effects Denies any interval mood symptoms, denies any depressive symptoms No interval suicidal ideation States that he slept well, reports having a good appetite Per staff, no interval behavioral disturbances Mental Status Exam MSE Comments: Sitting in the day room watching TV, polite, interactive, fairly well-groomed, good eye contact Psychomotor activity is neither increased nor decreased, no agitation I am feeling better, full range of affect, not labile Alert and oriented to person, place, time, situation Memory and concentration are fair to intact per interview Thought process, linear, no flight of ideas, no looseness of associations Thought content, reports delusions, does not appear to be attending to any internal stimuli, no suicidal or homicidal ideation Insight and judgment appear to be fair Vitals/I&O/Wt Last Vital Signs Temp 98.3 F 09/22/20 06:00 Pulse 62 09/22/20 06:00 Resp 17 09/22/20 06:00 BP 118/75 09/22/20 06:00 Pulse Ox 97 09/22/20 06:00 Weight last 48 hrs Weight 113.398 kg A&P Assessment and plan (1) Psychosis: Status: Acute Qualifiers: Psychosis type: unspecified psychosis type Qualified Code(s): F29 - Unspecified psychosis not due to a substance or known physiological condition (2) OCD (obsessive compulsive disorder): Status: Acute Qualifiers: Obsessive-compulsive disorder type: unspecified Qualified Code(s): F42.9 - Obsessive-compulsive disorder, unspecified Additional A&P Information Reports improvement with significantly diminished auditory hallucinations, denies any interval mood symptoms CONTINUE current medication, continue to monitor Involuntary Hold Information 96 Hour Hold: 96 Hour Involuntary Admission: No Attestations NPU Medical Necessity Statement*: Continues to require psychiatric hospitalization for medication stabilization Coding Level of Care Code Acute Instrumentation Specialist for [facility] Diagnoses Psychosis F29 Psychosis type: unspecified psychosis type OCD (obsessive compulsive disorder) F42.9 Obsessive-compulsive disorder type: unspecified
[2020-09-22 11:26] LABS: Glucose Point of Care 134 mg/dL (70-110)
[2020-09-22 14:00] VITALS: BP 130/87; PULSE 85; RESP 16; TEMP 37; O2SAT 98
[2020-09-22 16:40] LABS: Glucose Point of Care 136 mg/dL (70-110)
[2020-09-22 20:34] LABS: Glucose Point of Care 182 mg/dL (70-110)
[2020-09-22] MEDS: insulin glargine 100 units/1 mL 30 UNIT SUBCUT (20:44)
[2020-09-22] MEDS: OLANZapine 10 mg TABLET 20 MG PO (20:44)
[2020-09-22 21:25] VITALS: BP 143/85; PULSE 71; RESP 18; TEMP 36.5; O2SAT 97
[2020-09-23 05:10] VITALS: BP 119/83; PULSE 75; RESP 15; TEMP 37.1; O2SAT 96
[2020-09-23 06:55] LABS: Glucose Point of Care 92 mg/dL (70-110)
[2020-09-23] MEDS: OLANZapine 10 mg TABLET PO (08:34)
[2020-09-23] MEDS: benztropine 1 mg Tablet PO (08:34)
[2020-09-23] MEDS: fluoxetine 20 mg Capsule 60 MG PO (08:34)
[2020-09-23] MEDS: apixaban 5 mg Tablet PO (08:34)
--- NOTE | 2020-09-23 09:18 | P.DS_ITS ---
Diagnoses at Discharge Discharge Diagnosis (1) Psychosis: Status: Acute Qualifiers: Psychosis type: unspecified psychosis type Qualified Code(s): F29 - Unspecified psychosis not due to a substance or known physiological condition (2) OCD (obsessive compulsive disorder): Status: Acute Qualifiers: Obsessive-compulsive disorder type: unspecified Qualified Code(s): F42.9 - Obsessive-compulsive disorder, unspecified Reason for Visit Reason for Visit: Psychosis Hospital Course Hospital Course 35-year-old male with unclear past psychiatric history although he has a history of a previous psychiatric admission with self-reported history of self harming behavior when he becomes upset presented to an [facility] stating that he was hearing voices and thinking that he was possessed by demons. Patient has a history of alcohol abuse as self-report of ongoing cannabis use. Patient was initially started on Abilify with some improvement but continued to have some delusions and was subsequently switched to olanzapine which was titrated up to olanzapine 10 mg daily and olanzapine 20 mg at bedtime with significant improvement of his report of auditory hallucinations and delusions and was no longer reporting thoughts that he felt like he was being possessed. Patient participate in unit milieu with no reports of any behavioral disturbances. Patient was not suicidal and was denying any active psychotic symptoms at the time of discharge although he continues report some intermittent thoughts of hearing voices and did not appear to be an imminent threat of harm to self or others. Low to moderate risk of harm to self although patient does have a history of self-harm behavior at times when he becomes upset he was not actively suicidal at the time of discharge his risk will continue to be elevated if he is noncompliant with medication or continues to abuse substances and alcohol leadi ng to unexpected, impulsive behavior. Risk medication included psychiatric hospitalization, medication stabilization, recommendation to abstain from the use of substances and alcohol as well as the need for substance counseling/treatment and therapy targeting the development of more adaptive coping strategies as well as compliance with his medication medication management. He was able to communicate his understanding of the need to abstain from the use of substances and alcohol as well as the need for medication and medication management compliance and substance counseling/treatment order to further mitigate his risk of harm to self and others. Involuntary Hold Information 96 Hour Hold: 96 Hour Involuntary Admission: No Mental Status Exam MSE Comments: Sitting in the day room watching TV, polite, calm, cooperative, fairly well-groomed wearing hospital scrubs, good eye contact Psychomotor activity is neither increased nor decreased, no agitation I feel good, full range of affect, not labile Alert and oriented to person, place, time, situation Memory and concentration are fair to intact per interview Thought process, linear, no flight of ideas, no looseness of associations Thought content, reports delusions, does not appear to be attending to any internal stimuli, no suicidal or homicidal ideation Insight and judgment appear to be fair Discharge Data Data Completed and Pending: Labs from last 24 hours 09/23/20 09/22/20 09/22/20 06:50 20:29 16:29 POC Glucose 92 182 H 136 H 09/22/20 11:21 POC Glucose 134 H Vitals: Last Vital Signs Temp 98.8 F 09/23/20 05:10 Pulse 75 09/23/20 05:10 Resp 15 09/23/20 05:10 BP 119/83 09/23/20 05:10 Pulse Ox 96 09/23/20 05:10 Discharge Plan Discharge Patient Disposition: Home Condition: Stable Prescriptions: New olanzapine 10 mg Tablet 20 mg PO BEDTIME Qty: 30 RF: 0 fluoxetine 20 mg Capsule 60 mg PO DAILY Qty: 30 RF: 0 olanzapine 10 mg Tablet 10 mg PO DAILY Qty: 30 RF: 0 Continued Eliquis 5 mg Tablet 5 mg PO BID RF: 0 Lantus U-100 Insulin 100 unit/mL Solution 30 unit SUBCUT QPM RF: 0 Discharge Orders: Discharge Order (Routine); Ordered 09/23/20 Ordered By: Nell Davila Discharge Diet: Diabetic Discharge Activity: Resume usual activity Patient Instructions: Opioid Safety Discharge Attestations NPU Time Spent in Discharge Care*: greater than 30 min Status at Discharge: Cognitive status at discharge: cognitively intact , Behavioral status at discharge: cooperative , Functional status at discharge: independent ambulation Overall status at discharge: patient is back to baseline Coding Level of Care Code Acute Chg FW DC note Diagnoses Psychosis F29 Psychosis type: unspecified psychosis type OCD (obsessive compulsive disorder) F42.9 Obsessive-compulsive disorder type: unspecified
[2020-09-23 09:25] VITALS: BP 119/83; PULSE 75; RESP 15; TEMP 37.1; O2SAT 96
[2020-09-23 11:37] LABS: Glucose Point of Care 142 mg/dL (70-110)
--- NOTE | 2020-09-25 21:09 | PC.NURSE ---
Pt was recently discharged from our NPU unit, He called the NPU for medication clarification on 09/25/20 @ 4256. Pt will take his Olanzepine 20mg po At bedtime, Olanzepine 10mg PO in the morning. Pt was concerned about how to take this medication since he was only taking the 10mg Tablets. He is taking the right dose, teaching on how to make medication fit his schedule. Pt stated I have an appointment on the with behavioral health.
== END 2020-09-23 15:42 | disposition home or self-care (01) | DRG 885 ==
PROVIDERS: Admitting Provider Psychiatry & Neurology Psychiatry; Visit Provider Psychiatry & Neurology Psychiatry
DX: F29 Unspecified psychosis not due to a substance or known physiological condition (principal); Z68.41 Body mass index [BMI] 40.0-44.9, adult; F42.9 Obsessive-compulsive disorder, unspecified; F12.90 Cannabis use, unspecified, uncomplicated; F10.11 Alcohol abuse, in remission; F17.210 Nicotine dependence, cigarettes, uncomplicated; E11.9 Type 2 diabetes mellitus without complications; E66.01 Morbid (severe) obesity due to excess calories; Z62.811 Personal history of psychological abuse in childhood; Z79.4 Long term (current) use of insulin; Z81.8 Family history of other mental and behavioral disorders; Z86.59 Personal history of other mental and behavioral disorders; Z91.5 Personal history of self-harm; Z79.01 Long term (current) use of anticoagulants
CPT/HCPCS: 36416; 82962; 96372; J1815 ×2